=== PATIENT | male | born 1965 | race Caucasian/White ===

== ENCOUNTER 2022-11-19 09:29 | Outpatient (CLI) | payer OTHER, SELFPAY ==
--- NOTE | 2022-11-19 09:42 | ECHO_ITS ---
Patient Info Name: Jayy Rangel Age: 57 years : 1965 Gender: Male Ht: 72 in Wt: 200 lbs BSA: 2.16 m2 HR: 78 bpm BP: 117 / 65 mmHg Technical Quality: Good Exam Date: 11/19/2022 10:22 AM Exam Location: [facility] Pulmonary Exam Room: stress lab [facility] Patient Status: Outpatient Admit Date: 11/19/2022 Staff Ordering Physician: Hector Lucero PA-C Tetryl Dissolver Operator: Jaky Livingston RDCS Attending Provider: Hector Lucero PA-C Referring Physician: Jazmine FRYE; Exam Type: CA echo doppler color flow Study Info Indications - CHEST PAIN ON EXERTION Complete two-dimensional, color flow and Doppler transthoracic echocardiogram is performed. Summary 1. Complete two-dimensional, color flow and Doppler transthoracic echocardiogram is performed. 2. Left ventricular chamber dimension is normal. 3. Left ventricular systolic function is normal, estimated at 60-65%. 4. There is moderate concentric increased left ventricular wall thickness. 5. The left ventricular diastolic function is grade I diastolic dysfunction. 6. E/e' 17 is elevated. 7. There is severe aortic valve sclerosis. 8. There is severe aortic valve stenosis with a peak velocity of 460 cm/s, mean gradient of 55 mmHg, and aortic valve area of 0.8 cm2. 9. The mitral valve has moderately calcified annulus. 10. There is trace mitral valve regurgitation. 11. There is trace tricuspid valve regurgitation. 12. No pulmonary hypertension, estimated pulmonary arterial systolic pressure is 21 mmHg. Left Ventricle E/e' 17 is elevated. Left ventricular chamber dimension is normal. Left ventricular systolic function is normal, estimated at 60-65%. There is moderate concentric increased left ventricular wall thickness. The left ventricular diastolic function is grade I diastolic dysfunction. Right Ventricle Right ventricular chamber dimension is normal. Right ventricular systolic function is normal. Left Atria Left atrial chamber dimension is normal. Right Atria Right atrial chamber dimension is normal. Aortic Valve The aortic valve is not well visualized. Cannot determine number of aortic valve leaflets. There is severe aortic valve sclerosis. There is severe aortic valve stenosis with a peak velocity of 460 cm/s, mean gradient of 55 mmHg, and aortic valve area of 0.8 cm2. There is no aortic valve regurgitation. Pulmonic Valve There is no pulmonic regurgitation. Mitral Valve The mitral valve has moderately calcified annulus. There is no mitral valve stenosis. There is trace mitral valve regurgitation. Tricuspid Valve There is trace tricuspid valve regurgitation. No pulmonary hypertension, estimated pulmonary arterial systolic pressure is 21 mmHg. Pericardium/Pleural There is no pericardial effusion. Inferior Vena Cava Normal inferior vena cava with >50% collapse upon inspiration consistent with normal right atrial pressure, 5 mmHg. Aorta The aortic root size at the sinus of Valsalva is normal. Left Ventricular Outflow Tract Name Value Normal LVOT 2D LVOT Diameter 2.1 cm LVOT Doppler LVOT Peak Gradient 3
== END 2022-11-19 09:30 | disposition home or self-care (01) ==
LOC: ANHCARD 09:31
PROVIDERS: PCP Physician Assistant; Visit Provider Physician Assistant
DX: R07.89 Other chest pain (principal); I35.1 Nonrheumatic aortic (valve) insufficiency
CPT/HCPCS: 93306